=== PATIENT | female | born 1975 | race Caucasian/White ===

== ENCOUNTER 2019-12-07 18:16 | Outpatient (CLI) | payer OTHER, SELFPAY ==
[2019-12-07 19:31] LABS: Basophils # 0.1 10^3/uL (0.0-0.1); Eosinophils # 0.2 10^3/uL (0.0-0.8); Eosinophils % 2.9 %; Hemoglobin 13.4 g/dL (11.5-15.3); Lymphocytes # 1.7 10^3/uL (0.8-4.8); Lymphocytes % 29.1 %; Mean Corpuscular HGB Conc 32.7 g/dL (30.0-36.0); Mean Corpuscular Volume 94.9 fL (81-99); Mean Platelet Volume 10.2 fL (7.4-10.4); Monocytes # 0.4 10^3/uL (0.2-0.9); Monocytes % 6.2 %; Neutrophils # 3.5 10^3/uL (1.8-7.7); Neutrophils % 60.5 %; Nucleated Red Blood Cells % 0 %; Platelet Count 360 10^3/cmm (130-400); Red Blood Count 4.32 10^6/uL (4.1-5.3); Red Cell Distribution Width 11.9 % (12.1-15.1); White Blood Count 5.8 10^3/uL (4.0-10.0)
[2019-12-07 20:13] LABS: Estmated Average Glucose 128; Hemoglobin A1C 6.1 % (4.0-6.0)
[2019-12-07 20:46] LABS: Erythrocyte Sedimentation Rate 7 mm/hr (0-15)
[2019-12-08 03:50] LABS: Alanine Aminotransferase 20 U/L (0-33); Albumin Level 4.4 g/dL (3.5-5.2); Alkaline Phosphatase 114 IU/L (35-105); Anion Gap 15.6 (5-19); Aspartate Amino Transferase 19 U/L (0-32); Blood Urea Nitrogen 10 mg/dL (6-20); Calcium 10.2 mg/dL (8.5-10.5); Carbon Dioxide 25 mmol/L (22-29); Chloride 102 mmol/L (98-107); Chol HDL Ratio 3.15 mg/dL (0.0-4.40); Cholesterol 164 mg/dL (0-200); Globulin 2.6 g/dL (1.3-4.6); Glomerular Filtration Rate 78.3 mL/min (90-130); Glucose 92 mg/dL (65-115); HDL Cholesterol 52 mg/dL (60-100); LDL Cholesterol Calculated 88 mg/dL (50-129); LDL HDL Ratio 1.69 RATIO (0.00-3.22); Osmolality Calculated 282 mOsm/kg (285-295); Potassium 4.6 mmol/L (3.5-5.1); Sodium 138 mmol/L (136-145); Thyroid Stimulating Hormone 2.11 uIU/mL (0.27-4.20); Total Bilirubin 0.4 mg/dL (0.15-1.2); Triglycerides 119 mg/dL (0-150)
[2019-12-09 13:07] LABS: Anti-Nuclear Antibody Screen NEGATIVE (NEGATIVE)
== END 2019-12-07 18:17 | disposition home or self-care (01) ==
LOC: LAB 18:19
PROVIDERS: Family Provider Family Medicine; Visit Provider Nurse Practitioner Family
DX: I63.50 Cerebral infarction due to unspecified occlusion or stenosis of unspecified cerebral artery (principal); G43.109 Migraine with aura, not intractable, without status migrainosus
CPT/HCPCS: 80053; 80061; 83036; 84443; 85025; 85651; 86038

== ENCOUNTER → 2020-06-14 14:04 | Outpatient (BNVA) | payer OTHER, SELFPAY | PROVIDERS: Family Provider Family Medicine; PCP Urology; Visit Provider Nurse Practitioner Family | DX: N30.10 Interstitial cystitis (chronic) without hematuria (principal) | CPT/HCPCS: 80053; 81003 ==

== ENCOUNTER → 2020-06-28 15:38 | Outpatient (BNVA) | payer OTHER, SELFPAY | PROVIDERS: Family Provider Family Medicine; PCP Urology; Visit Provider Nurse Practitioner Family | DX: N30.10 Interstitial cystitis (chronic) without hematuria (principal) | CPT/HCPCS: 81003 ==

== ENCOUNTER → 2020-07-30 15:45 | Outpatient (BNVA) | payer OTHER, SELFPAY | PROVIDERS: Family Provider Family Medicine; PCP Urology; Visit Provider Nurse Practitioner Family | DX: N30.10 Interstitial cystitis (chronic) without hematuria (principal) | CPT/HCPCS: 81003 ==

== ENCOUNTER 2020-11-08 08:07 | Outpatient (CLI) | payer OTHER, SELFPAY ==
--- NOTE | 2020-11-08 08:11 | MM_ITS ---
WS: [id number] BILATERAL DIGITAL SCREENING MAMMOGRAPHY WITH CAD CLINICAL INFORMATION: SCREENING HISTORY: Screening mammogram. No current complaints. COMPARISON: and November 2018 TECHNIQUE: Bilateral CC and MLO views. FINDINGS: The breasts are composed of heterogeneous fibroglandular density tissue, which can limit the detectio n of small underlying mass lesions. A few tiny punctate calcifications. No suspicious mass, asymmetry , calcifications, or architectural distortion. No evidence of malignancy. MM/[place] [id number] IMPRESSION: BI-RADS: 2-Benign FOLLOW UP: 1 Year Follow-up Recommend return to annual screening mammography.
== END 2020-11-08 08:08 | disposition home or self-care (01) ==
LOC: RADSHAW 08:09
PROVIDERS: PCP Nurse Practitioner Family; Visit Provider Obstetrics & Gynecology
DX: Z12.31 Encounter for screening mammogram for malignant neoplasm of breast (principal)
CPT/HCPCS: 77067

== ENCOUNTER → 2020-12-05 16:07 | Outpatient (BNVA) | payer OTHER, SELFPAY | PROVIDERS: PCP Nurse Practitioner Family; Visit Provider Urology | DX: N30.10 Interstitial cystitis (chronic) without hematuria (principal); R39.15 Urgency of urination | CPT/HCPCS: 81003 ==

== ENCOUNTER → 2022-02-17 11:08 | Outpatient (BNVA) | payer OTHER, SELFPAY | PROVIDERS: PCP Nurse Practitioner Family; Visit Provider Nurse Practitioner Family | DX: N39.0 Urinary tract infection, site not specified (principal) | CPT/HCPCS: 81003 ==

== ENCOUNTER 2022-02-21 12:57 | Outpatient (CLI) | payer OTHER, SELFPAY ==
--- NOTE | 2022-02-21 13:08 | MM_ITS ---
WS: [id number] BILATERAL 3D TOMOSYNTHESIS DIGITAL SCREENING MAMMOGRAPHY WITH CAD CLINICAL INFORMATION: SCREENING HISTORY: Screening mammogram. No current complaints. COMPARISON: November 08, 2020 TECHNIQUE: Bilateral CC and MLO views. FINDINGS: Scattered fibroglandular densities bilaterally. A few incidental punctate calcifications. No suspicio us focal mass, asymmetry, calcifications, or architectural distortion. No evidence of malignancy. MM/[place] [id number] IMPRESSION: BI-RADS: 2-Benign FOLLOW UP: 1 Year Follow-up Recommend return to annual screening mammography.
== END 2022-02-21 12:58 | disposition home or self-care (01) ==
LOC: RAD 12:57
PROVIDERS: PCP Nurse Practitioner Family; Visit Provider Obstetrics & Gynecology
DX: Z12.31 Encounter for screening mammogram for malignant neoplasm of breast (principal)
CPT/HCPCS: 77063; 77067

== ENCOUNTER 2022-08-15 16:31 | Outpatient (CLI) | payer OTHER, SELFPAY ==
--- NOTE | 2022-08-15 17:04 | XRR_ITS ---
PROCEDURE INFORMATION: Exam: XR Right Foot Exam date and time: 08/15/2022 5:05 PM Age: 47 years old Clinical indication: Foot and toes; Right; Patient HX: Pain in RT toes; No injury; Additional info: Toe pain TECHNIQUE: Imaging protocol: Radiologic exam of the Right foot. Views: 3 or more views. AP Oblique Lateral COMPARISON: No relevant prior studies available. FINDINGS: Bones/joints: Moderate hallux valgus alignment abnormality is seen. Lateral positioning of the lateral sesamoid is seen. There are no fractures or dislocations. The toe interphalangeal joints, tarsometatarsal joints, metatarsophalangeal joints and subtalar joint are unremarkable. Soft tissues: There is no radiographic soft tissue swelling. There are no radiopaque foreign bodies. Notes: If there is further concern, recommend follow-up radiographs or MRI for complete assessment. XR/XR foot RT min 3V* [id number] IMPRESSION: Moderate hallux valgus alignment abnormality.
== END 2022-08-15 16:32 | disposition home or self-care (01) ==
PROVIDERS: PCP Nurse Practitioner Family; Visit Provider Nurse Practitioner Family
DX: M79.674 Pain in right toe(s) (principal); M20.11 Hallux valgus (acquired), right foot
CPT/HCPCS: 73630

== ENCOUNTER 2023-02-23 13:13 | Outpatient (CLI) | payer OTHER, SELFPAY ==
--- NOTE | 2023-02-23 13:40 | MM_ITS ---
WS: [id number] BILATERAL 3D TOMOSYNTHESIS DIGITAL SCREENING MAMMOGRAPHY WITH CAD CLINICAL INFORMATION: SCREENING HISTORY: Screening mammogram. No current complaints. COMPARISON: 2021 TECHNIQUE: Bilateral CC and MLO views. FINDINGS: The breasts are composed of heterogeneous fibroglandular density tissue, which can limit the detectio n of small underlying mass lesions. No suspicious mass, asymmetry, calcifications, or architectural d istortion. No evidence of malignancy. Incidental punctate calcifications bilaterally. MM/[place] [id number] IMPRESSION: BI-RADS: 2-Benign FOLLOW UP: 1 Year Follow-up Recommend return to annual screening mammography.
== END 2023-02-23 13:14 | disposition home or self-care (01) ==
LOC: RAD 13:15 → MOBLMAM 14:08
PROVIDERS: PCP Nurse Practitioner Family; Visit Provider Nurse Practitioner Family
DX: Z12.31 Encounter for screening mammogram for malignant neoplasm of breast (principal)
CPT/HCPCS: 77063; 77067

== ENCOUNTER 2024-05-05 09:33 | Outpatient (CLI) | payer OTHER, SELFPAY ==
--- NOTE | 2024-05-05 09:40 | MM_ITS ---
WS: [id number] SCREENING DIGITAL BREAST TOMOSYNTHESIS MAMMOGRAM WITH CAD HISTORY: SCREENING COMPARISON: 02/23/2023, 02/21/2022, 11/08/2021 Bilateral CC and MLO with tomosynthesis and synthetic mammography submitted. Computer aided detection analyzed. Breast composition: The breasts are heterogeneously dense, which may obscure small masses. New round mass with microlobulated margins of equal density in the posterior lateral RIGHT breast just below th e nipple line, 7:00. There are additional small masses which are probably intramammary lymph nodes. A dditional benign calcifications which are stable. MM/MM scr [place] tomosynthesis [id number] IMPRESSION: BI-RADS: 0 - Incomplete: Need additional imaging evaluation FOLLOW UP: Need Additional Imaging RIGHT breast: Spot compression views (CC and MLO). True ML. Ultrasound to follo w if abnormality persists.
== END 2024-05-05 09:34 | disposition home or self-care (01) ==
LOC: MOBLMAM 09:40
PROVIDERS: PCP Obstetrics & Gynecology; Visit Provider Obstetrics & Gynecology
DX: Z12.31 Encounter for screening mammogram for malignant neoplasm of breast (principal); R92.333 Mammographic heterogeneous density, bilateral breasts; N63.13 Unspecified lump in the right breast, lower outer quadrant; R92.1 Mammographic calcification found on diagnostic imaging of breast
CPT/HCPCS: 77063; 77067

== ENCOUNTER 2024-07-12 12:51 | Outpatient (CLI) | payer OTHER, SELFPAY ==
--- NOTE | 2024-07-12 12:54 | MM_ITS ---
WS: [id number] ADDITIONAL VIEWS RIGHT MAMMOGRAM WITH DIGITAL BREAST TOMOSYNTHESIS. RIGHT BREAST ULTRASOUND HISTORY: ABNORMAL MAMMO COMPARISON: 05/05/2024, 02/23/2023 RIGHT MAMMOGRAM: Spot compression views and true ML with digital breast tomosynthesis and SM. Slightly lobulated mass persists in the posterior RIGHT breast just lateral to the nipple. Mass measu res 5 x 6 x 6 mm and does appear to be below the nipple line. This is nearly isoechoic to the adjacen t fibroglandular breast tissue. RIGHT BREAST ULTRASOUND 2-D and color Doppler imaging submitted. Hypoechoic irregular shaped mass at 7:00, 4 cm from the nipple in the RIGHT breast measures 0.5 x 0.5 x 0.6 cm. This does correspond to the mammographic abnormality. MM/MM diag RT tomosynthesis [id number] IMPRESSION: BI-RADS: 4- Suspicious Finding - Biopsy Should be Considered FOLLOW UP: Biopsy Recommended Ultrasound-guided biopsy recommended. Notified Karyna Castillo NP at 07/12/2024 1:55 PM.
== END 2024-07-12 12:52 | disposition home or self-care (01) ==
LOC: RAD 12:53
PROVIDERS: PCP Obstetrics & Gynecology; Visit Provider Nurse Practitioner Family
DX: N63.14 Unspecified lump in the right breast, lower inner quadrant (principal)
CPT/HCPCS: 76642; 77061; G0279